=== PATIENT | male | born 1945 | race Caucasian/White ===

== ENCOUNTER → 2016-10-06 | Outpatient (CLI) | payer MEDICARE, OTHER ==
[~2016-10-06] MED LIST: ASPIRIN LO-DOSE81 MG PO; ATENOLOL50 MG PO; CALCIUM-MAGNES1 EAC5 PO; CITRACAL+D(315M1 TAB PO; CO Q-10100 MG PO; FISH OIL 1,2001 EACH PO; FLOMAX0.4 MG PO; FLONASE 50 MCG/16 GM NOSE; FOLIC ACID0.8 MG PO; LIPITOR40 MG PO; MAGNESIUM500 MG PO; OMEPRAZOLE40 MG PO; POTASSIUM99 M1 PO; PROSCAR5 MG PO; VITAMIN A8000 UNIT PO; VITAMIN B-121000 MCG PO; VITAMIN B-6100 MG PO; VITAMIN D1000 UNIT PO; ZINC50 M1 PO
== END | disposition disaster alternative care site (69) ==
LOC: LGSMG 14:38
DX: R10.13 Epigastric pain (principal); I25.10 Atherosclerotic heart disease of native coronary artery without angina pectoris

== ENCOUNTER → 2016-10-14 | Day surgery (SDC) | payer MEDICARE, OTHER ==
[~2016-10-14] VITALS: Ht 170.2 cm; Wt 103.0 kg
== END | disposition disaster alternative care site (69) ==
LOC: GPOC 10-08 11:00 → GEND 07:08 → GPOC 11:00
PROC: 0DB68ZX Excision of Stomach, Via Natural or Artificial Opening Endoscopic, Diagnostic (ICD-10-PCS; principal; 2016-10-14)
DX: K20.9 Esophagitis, unspecified (principal); K29.60 Other gastritis without bleeding; K44.9 Diaphragmatic hernia without obstruction or gangrene; K21.9 Gastro-esophageal reflux disease without esophagitis; I48.0 Paroxysmal atrial fibrillation; I25.10 Atherosclerotic heart disease of native coronary artery without angina pectoris; I49.3 Ventricular premature depolarization; Z87.891 Personal history of nicotine dependence; Z88.8 Allergy status to other drugs, medicaments and biological substances; Z90.49 Acquired absence of other specified parts of digestive tract; Z98.890 Other specified postprocedural states; Z95.0 Presence of cardiac pacemaker; Z79.82 Long term (current) use of aspirin; Z79.899 Other long term (current) drug therapy
CPT/HCPCS: J7030